=== PATIENT | female | born 1995 | race Caucasian/White ===

== ENCOUNTER 2017-10-08 03:24 | Outpatient (CLI) | payer MEDICAID ==
[2017-10-08 06:05] LABS: ADD UMIC NO; UR ASCORBIC ACID NEGATIVE (NEGATIVE); UR BILIRUBIN (Dip) NEGATIVE (NEGATIVE); UR BLOOD (Dip) NEGATIVE (NEGATIVE); UR CLARITY SLIGHTLY CLOUDY (CLEAR); UR COLOR YELLOW (YELLOW); UR GLUCOSE (Dip) NEGATIVE (NEGATIVE); UR KETONES (Dip) NEGATIVE (NEGATIVE); UR LEUKOCYTE ESTERASE (Dip) NEGATIVE Leu/ul (NEGATIVE); UR MUCUS FEW /HPF (NONE SEEN); UR NITRITE (Dip) NEGATIVE (NEGATIVE); UR RBC 6 /HPF (0-5); UR SPECIFIC GRAVITY (Dip) 1.015 (1.003-1.030); UR SQUAMOUS EPITHELIAL CELL FEW /HPF (FEW); UR TOTAL PROTEIN (Dip) NEGATIVE (NEGATIVE); UR UROBILINOGEN (Dip) NEGATIVE (NEGATIVE); UR WBC 2 /HPF (0-5)
== END 2017-10-08 07:11 | disposition home or self-care (01) ==
LOC: OBT 03:24 → L-D 03:25 → OBT 07:11
DX: O62.9 Abnormality of forces of labor, unspecified (principal); Z3A.39 39 weeks gestation of pregnancy
CPT/HCPCS: 76815; 76818; 81001; 81003

== ENCOUNTER 2017-10-09 16:44 | Inpatient (IN) | payer MEDICAID ==
[2017-10-09] MEDS ORDERED: MISOPROSTOL 200 MCG TAB PR (18:00)
[2017-10-09] MEDS ORDERED: LIDOCAINE 1% (MPF) 30 ML INJ INJ (18:00)
[2017-10-09] MEDS ORDERED: OXYTOCIN 30 UNITS/LR 500 ML IV (18:00)
[2017-10-09] MEDS ORDERED: METHYLERGONOVINE 0.2 MG INJ IM (18:00)
[2017-10-09] MEDS ORDERED: BUTORPHANOL 2 MG INJ IV (18:00)
[2017-10-09] MEDS ORDERED: CARBOPROST 250 MCG INJ IM (18:00)
[2017-10-09] MEDS ORDERED: BUTORPHANOL 1 MG INJ IV (18:00)
[2017-10-09 18:13] LABS: ADD MAN DIFF? NO
[2017-10-09 18:15] LABS: WHITE BLOOD COUNT 10.5 10^3/ul (4.8-10.8)
[2017-10-09 18:15] LABS: BASOPHILS % 0.3 % (0.0-2.0); EOSINOPHILS # 0.2 10^3/ul (0.0-0.5); EOSINOPHILS % 1.9 % (0.0-7.0); HEMATOCRIT 35.7 % (37.0-47.0); HEMOGLOBIN 11.6 g/dl (12.0-16.0); LYMPHOCYTES # 1.9 10^3/ul (0.8-2.9); LYMPHOCYTES % 18.5 % (15.0-51.0); MEAN CORPUSCULAR HGB CONC 32.5 g/dl (32.0-37.0); MEAN CORPUSCULAR VOLUME 86.2 fl (82.0-101.0); MEAN PLATELET VOLUME 10.1 fl (7.4-10.4); MONOCYTE # 0.9 10^3/ul (0.3-0.9); MONOCYTES % 8.3 % (0.0-11.0); NEUTROPHIL # 7.4 10^3/ul (1.6-7.5); NEUTROPHILS % 70.1 % (39.0-77.0); PLATELET COUNT 248 10^3/UL (140-415); RED BLOOD COUNT 4.14 10^6/ul (4.20-5.40); RED CELL DISTRIBUTION WIDTH 14.1 % (11.5-14.5)
[2017-10-09 18:21] LABS: ADD UMIC YES; UR ASCORBIC ACID 40 mg/dL (NEGATIVE); UR BACTERIA FEW /HPF (NONE SEEN); UR BILIRUBIN (Dip) NEGATIVE (NEGATIVE); UR BLOOD (Dip) NEGATIVE (NEGATIVE); UR CLARITY CLOUDY (CLEAR); UR COLOR YELLOW (YELLOW); UR GLUCOSE (Dip) NEGATIVE (NEGATIVE); UR KETONES (Dip) TRACE mg/dL (NEGATIVE); UR LEUKOCYTE ESTERASE (Dip) 1+ Leu/ul (NEGATIVE); UR MUCUS FEW /HPF (NONE SEEN); UR NITRITE (Dip) NEGATIVE (NEGATIVE); UR RBC 4 /HPF (0-5); UR SPECIFIC GRAVITY (Dip) 1.031 (1.003-1.030); UR SQUAMOUS EPITHELIAL CELL MODERATE /HPF (FEW); UR TOTAL PROTEIN (Dip) 1+ mg/dl (NEGATIVE); UR UROBILINOGEN (Dip) 1+ mg/dL (NEGATIVE); UR WBC 5 /HPF (0-5)
[2017-10-09 18:35] LABS: INR 1.01; PROTIME 13.4 Sec (11.9-14.9)
[2017-10-09 18:36] LABS: PARTIAL THROMBOPLASTIN TIME 29.2 Sec (25.0-35.0)
[2017-10-09 18:40] LABS: ALANINE AMINOTRANSFERASE 13 IU/L (13-69); ALBUMIN 3.3 g/dl (3.3-4.9); ALKALINE PHOSPHATASE 154 IU/L (42-121); ANION GAP 12 (8-16); ASPARTATE AMINO TRANSFERASE 23 IU/L (15-46); BILIRUBIN,INDIRECT 0.2 mg/dl (0-1.1); BILIRUBIN,TOTAL 0.2 mg/dl (0.2-1.3); BLOOD UREA NITROGEN 12 mg/dl (7-20); CALCIUM 8.9 mg/dl (8.4-10.2); CARBON DIOXIDE 21 mmol/L (21-31); CHLORIDE 109 mmol/L (97-110); CREATININE 0.56 mg/dl (0.44-1.00); GLUCOSE 111 mg/dl (70-220); POTASSIUM 4.4 mmol/L (3.5-5.1); SODIUM 138 mmol/L (135-144); TOTAL PROTEIN 6.6 g/dl (6.1-8.1)
[2017-10-09] MEDS: LACTATED RINGER'S 1,000 ML IV* (18:43)
[2017-10-09 19:12] LABS: HEPATITIS B SURFACE ANTIGEN NEGATIVE (NEGATIVE)
[2017-10-09] MEDS: MISOPROSTOL 25 MCG CAPSULE PO ×2 (19:40→23:58)
[2017-10-10] MEDS: LACTATED RINGER'S 1,000 ML IV* ×4 (00:42→23:54)
[2017-10-10] MEDS: MISOPROSTOL 25 MCG CAPSULE PO ×3 (03:58→14:38)
[2017-10-10 11:40] LABS: AMPHETAMINE/METHAMPHETAMINE Negative (NEGATIVE); BARBITURATES Negative (NEGATIVE); BENZODIAZEPINES Negative (NEGATIVE); CANNABINOIDS Negative (NEGATIVE); COCAINE Negative (NEGATIVE); OPIATES Negative (NEGATIVE)
[2017-10-10 14:57] LABS: RAPID PLASMA REAGIN NONREACTIVE (NR)
[2017-10-11] MEDS: MISOPROSTOL 25 MCG CAPSULE PO (01:28)
[2017-10-11] MEDS: LACTATED RINGER'S 1,000 ML IV* ×2 (08:34→20:51)
[2017-10-11] MEDS: DINOPROSTONE 10 MG VAG SUPP VAG (15:44)
[2017-10-12] MEDS: LACTATED RINGER'S 1,000 ML IV* ×4 (05:13→19:06)
[2017-10-12] MEDS: DINOPROSTONE 10 MG VAG SUPP VAG (05:26)
[2017-10-12] MEDS: OXYTOCIN 30 UNITS/LR 500 ML IV (15:06)
[2017-10-12] MEDS ORDERED: FENTAnyl 2MCG/ML-ROPIV 0.2% 100 ML (16:34)
[2017-10-13] MEDS: LACTATED RINGER'S 1,000 ML IV* ×3 (00:05→14:59)
[2017-10-13] MEDS ORDERED: HYDROmorphONE 0.5 MG/0.5 ML SYG IV ×2 (02:00)
[2017-10-13] MEDS ORDERED: DIPHENHYDRAMINE 50 MG INJ IV (02:00)
[2017-10-13] MEDS ORDERED: ONDANSETRON 4 MG INJ IV (02:00)
[2017-10-13] MEDS ORDERED: KETOROLAC 30 MG INJ IV (02:00)
[2017-10-13] MEDS ORDERED: NALOXONE (0.4 MG/ML) INJ IV (02:00)
[2017-10-13] MEDS: FENTAnyl 2MCG/ML-ROPIV 0.2% 100 ML BAG EPI ×3 (02:40→17:57)
[2017-10-13] MEDS: AMPICILLIN 2 GM/NS (PMX) 100 ML IV (11:52)
[2017-10-13] MEDS: AMPICILLIN 1 GM/NS (PMX) 50 ML IV ×2 (16:36→20:02)
[2017-10-13] MEDS: MINERAL OIL LIGHT 10 ML VIAL TOP (22:00)
[2017-10-13] MEDS: OXYTOCIN 30 UNITS/LR 500 ML IV (22:48)
[2017-10-14] MEDS: IBUPROFEN 600 MG TAB PO ×5 (00:17→23:45)
[2017-10-14] MEDS: OXYTOCIN 30 UNITS/LR 500 ML IV (00:19)
[2017-10-14] MEDS: OXYCODONE/ASPIRIN (4.88/325) TAB PO (00:50)
[2017-10-14] MEDS ORDERED: MISOPROSTOL 200 MCG TAB PR (01:00)
[2017-10-14] MEDS ORDERED: METHYLERGONOVINE 0.2 MG INJ IM (01:00)
[2017-10-14] MEDS ORDERED: ZOLPIDEM 5 MG TAB PO (01:00)
[2017-10-14] MEDS ORDERED: OXYCODONE/ASPIRIN (4.88/325) TAB PO (01:00)
[2017-10-14] MEDS ORDERED: OXYTOCIN 30 UNITS/LR 500 ML IV (01:00)
[2017-10-14] MEDS ORDERED: LANOLIN 7 GM TUBE TOP (01:00)
[2017-10-14] MEDS ORDERED: CARBOPROST 250 MCG INJ IM (01:00)
[2017-10-14] MEDS: LACTATED RINGER'S 1,000 ML IV* ×2 (04:44→07:47)
[2017-10-14] MEDS: WITCH HAZEL/GLYCERIN PAD PR (05:57)
[2017-10-14] MEDS: BENZOCAINE 20% 56 ML SPRAY TOP (06:00)
[2017-10-14 08:57] LABS: ADD MAN DIFF? NO
[2017-10-14] MEDS: SENNA/DOCUSATE NA (8.6MG/50MG) TAB PO ×2 (08:57→20:49)
[2017-10-14 08:59] LABS: WHITE BLOOD COUNT 17.9 10^3/ul (4.8-10.8)
[2017-10-14 08:59] LABS: ABNORMAL IP MESSAGE 1; BASOPHIL # 0.1 10^3/ul (0.0-0.1); BASOPHILS % 0.3 % (0.0-2.0); EOSINOPHILS # 0.1 10^3/ul (0.0-0.5); EOSINOPHILS % 0.7 % (0.0-7.0); HEMATOCRIT 30.9 % (37.0-47.0); LYMPHOCYTES # 2.1 10^3/ul (0.8-2.9); LYMPHOCYTES % 11.6 % (15.0-51.0); MEAN CORPUSCULAR HEMOGLOBIN 27.9 pg (29.0-33.0); MEAN CORPUSCULAR HGB CONC 32.4 g/dl (32.0-37.0); MEAN CORPUSCULAR VOLUME 86.3 fl (82.0-101.0); MEAN PLATELET VOLUME 10.7 fl (7.4-10.4); MONOCYTE # 1.7 10^3/ul (0.3-0.9); MONOCYTES % 9.4 % (0.0-11.0); NEUTROPHIL # 13.9 10^3/ul (1.6-7.5); NEUTROPHILS % 77.4 % (39.0-77.0); PLATELET COUNT 198 10^3/UL (140-415); RED BLOOD COUNT 3.58 10^6/ul (4.20-5.40); RED CELL DISTRIBUTION WIDTH 14.1 % (11.5-14.5)
[2017-10-15] MEDS: IBUPROFEN 600 MG TAB PO ×2 (05:38→12:15)
[2017-10-15 06:40] LABS: ADD MAN DIFF? NO
[2017-10-15 06:43] LABS: BASOPHILS % 0.2 % (0.0-2.0); EOSINOPHILS # 0.3 10^3/ul (0.0-0.5); EOSINOPHILS % 2.1 % (0.0-7.0); HEMATOCRIT 28.1 % (37.0-47.0); LYMPHOCYTES # 2.6 10^3/ul (0.8-2.9); LYMPHOCYTES % 20.8 % (15.0-51.0); MEAN CORPUSCULAR HEMOGLOBIN 27.6 pg (29.0-33.0); MEAN CORPUSCULAR VOLUME 86.2 fl (82.0-101.0); MEAN PLATELET VOLUME 10.2 fl (7.4-10.4); MONOCYTE # 1.1 10^3/ul (0.3-0.9); MONOCYTES % 8.8 % (0.0-11.0); NEUTROPHIL # 8.4 10^3/ul (1.6-7.5); NEUTROPHILS % 67.2 % (39.0-77.0); PLATELET COUNT 165 10^3/UL (140-415); RED BLOOD COUNT 3.26 10^6/ul (4.20-5.40); RED CELL DISTRIBUTION WIDTH 14.4 % (11.5-14.5)
[2017-10-15 06:43] LABS: WHITE BLOOD COUNT 12.4 10^3/ul (4.8-10.8)
[2017-10-15] MEDS: SENNA/DOCUSATE NA (8.6MG/50MG) TAB PO (09:02)
[2017-10-15] MEDS: DIPHTH/TET/ACEL PERTUSS (ADULT) 0.5 ML VIAL IM* (13:57)
== END 2017-10-15 15:40 | disposition home or self-care (01) | DRG 775 ==
LOC: OBT 16:44 → PP1 10-14 02:15 → L-D 16:46 → OBT 17:35 → L-D 17:35
PROC: 10E0XZZ Delivery of Products of Conception, External Approach (ICD-10-PCS; principal; 2017-10-12)
PROC: 0W8NXZZ Division of Female Perineum, External Approach (ICD-10-PCS; 2017-10-12)
PROC: 3E033VJ Introduction of Other Hormone into Peripheral Vein, Percutaneous Approach (ICD-10-PCS; 2017-10-12)
DX: O13.4 Gestational [pregnancy-induced] hypertension without significant proteinuria, complicating childbirth (principal); Z68.42 Body mass index [BMI] 45.0-49.9, adult; O48.0 Post-term pregnancy; Z3A.40 40 weeks gestation of pregnancy; O99.214 Obesity complicating childbirth; E66.01 Morbid (severe) obesity due to excess calories; Z3A.39 39 weeks gestation of pregnancy; Z37.0 Single live birth
CPT/HCPCS: 80053; 80307; 81001; 84560; 85025; 85610; 85730; 86592; 86850; 86900; 86901; 87340